=== PATIENT | female | born 1955 | race Two or more races ===

== ENCOUNTER → 2018-06-03 | Outpatient (CLI) | payer OTHER ==
[~2018-06-03] MED LIST: DIOVAN160 M1; METFORMIN HCL500 MG
== END | disposition home or self-care (01) ==
LOC: NUCLEAR 12:39
DX: M81.0 Age-related osteoporosis without current pathological fracture (principal)

== ENCOUNTER 2018-07-09 09:21 | Emergency (ER) | payer OTHER ==
[~2018-07-09] VITALS: Ht 162.6 cm; Wt 76.2 kg
[2018-07-09] MEDS ORDERED: COZAAR25 MG (10:00)
[2018-07-09] MEDS ORDERED: TOPROL XL50 M1 (10:00)
[2018-07-09] MEDS ORDERED: ADULT ASPIRIN81 MG (10:00)
[2018-07-09] MEDS ORDERED: TESSALON PERLE100 M1 PO (15:14)
[2018-07-09] MEDS ORDERED: XOPENEX0.63 MG/3 IH (15:14)
[2018-07-09] MEDS ORDERED: PROMETH-CODEIN 65 ML PO (15:14)
== END 2018-07-09 15:33 | disposition home or self-care (01) ==
LOC: ER 09:21
DX: J45.998 Other asthma (principal)